=== PATIENT | female | born 1965 | race Caucasian/White ===

== ENCOUNTER 2016-10-10 11:12 | Emergency (ER) | payer BC, MEDICAID ==
[2016-10-10 13:02] VITALS: BP 148/68
--- NOTE | 2016-10-10 13:17 | UC ---
Neck Pain HPI - HPI Summary HPI Summary: c/o feeling like muscle are tight in R side of neck since Wednesday. Denies any injury. Here with her Patrick. pain just started suddenly that evening. hard to turn her neck from side to side. denies any w/n//t into arm. no central pain. pain radiates to right upper trap area and right lateral neck. Max pain 8/ 10 and decreased to about 6/10 with ibuprofen 800mgs. - History of Current Complaint Chief Complaint: UCBackPain Stated Complaint: NECK COMPLAINT Time Seen by Provider: 10/10/16 13:13 Hx Last Menstrual Period: 09/02/16 - Allergies/Home Medications Allergies/Adverse Reactions: Allergies Allergy/AdvReac Type Severity Reaction Status Date / Time No Known Allergies Allergy Verified 10/10/16 12:56 PMH/Surg Hx/FS Hx/Imm Hx Previously Healthy: Yes Endocrine History Of: Denies: Diabetes Cardiovascular History Of: Denies: Hypertension, Pacemaker/ICD Respiratory History Of: Reports: Bronchitis - 2013 Denies: Asthma GI/ History Of: Reports: Kidney Stones - HX OF KIDNEY STONES IN LEFT KIDNEY - Surgical History Surgical History: Yes Surgery Procedure, Year, and Place: 1997 AND 2001 X 2, [facility]. 2001 LAPAROSCOPIC CHOLECYSTECTOMY, [facility] [place]. 2001 TUBAL LIGATION, [facility]. 2013 CYSTOSCOPY , LEFT RETROGRADE, LEFT URETERAL STENT INSERTION. MULTIPLE ESWL, [facility]. 02/2015 REPAIR OF POSTERIOR TIBIAL TENDON AND CALCANEAL OSTEOTOMY LEFT FOOT, [facility] [place] - Family History Known Family History: Positive: Hypertension - Social History Alcohol Use: None Substance Use Type: None Smoking Status (MU): Heavy Every Day Tobacco Smoker Type: Cigarettes Amount Used/How Often: 1/2 PPD Length of Time of Smoking/Using Tobacco: 25 YEARS Have You Smoked in the Last Year: Yes Review Of Systems Constitutional: Positive: Negative Skin: Positive: Negative Eyes: Positive: Negative ENT: Positive: Negative Respiratory: Positive: Negative Cardiovascular: Positive: Negative Gastrointestinal: Positive: Negative Genitourinary: Positive: Negative Musculoskeletal: Positive: Myalgia Neurological: Positive: Negative Psychological: Positive: Negative All Other Systems Reviewed And Are Negative: Yes Physical Exam Triage Information Reviewed: Yes Appearance: Well-Appearing, Pain Distress - mild-moderate Vital Signs: Initial Vital Signs Temp 99.3 F 10/10/16 12:57 Pulse 82 10/10/16 12:57 Resp 20 10/10/16 12:57 BP 148/68 10/10/16 12:57 Pulse Ox 98 10/10/16 12:57 Vital Signs Reviewed: Yes Eye Exam: Normal ENT Exam: Normal Neck: Positive: Supple, Tenderness @ - right paraspinal, upper trap and right lateral neck muscle spasm and tenderness that reproduces the pain. ROM is limited lateral right and left due to pain. Good flexion and extension. no midline tenderness. Negative: Nuchal Rigidity Respiratory: Positive: Lungs clear, Normal breath sounds, No respiratory distress Cardiovascular Exam: Normal Cardiovascular: Positive: RRR, No Murmur, Pulses Normal, Brisk Capillary Refill Abdominal Exam: Normal Abdomen Description: Positive: Nontender, Soft Musculoskeletal: Positive: Other: - see neck above Neurological Exam: Normal Neurological: Positive: Muscle Tone Normal, Other: - strength 5/5 B/L UE proximal and distal and equal b/l. + 2 B/T/BR b/l. Psychological Exam: Normal Skin Exam: Normal Neck Pain Course/Dx - Differential Dx/Diagnosis Differential Dx/HQI/PQRI: Sprain, Strain, Torticollis Provider Diagnoses: torticollis Discharge - Discharge Plan Condition: Stable Disposition: HOME Prescriptions: Cyclobenzaprine TAB* [Flexeril TAB*] 10 mg PO BID PRN #10 tab PRN Reason: Pain Meloxicam [Mobic] 15 mg PO Q24HR #14 tab Patient Education Materials: Spasmodic Torticollis (ED) Additional Instructions: Follow up with your PCP in 2-3 days. consideration should be given to xrays at that time if not improved. Do not take NSAIDs with the meloxicam. You denied any h/o ulcers or intestinal/bleeding issues.
== END 2016-10-10 13:39 | disposition home or self-care (01) ==
LOC: UCCORT 11:12
DX: M43.6 Torticollis (principal); F17.210 Nicotine dependence, cigarettes, uncomplicated
CPT/HCPCS: 99212; G0463

== ENCOUNTER 2017-09-04 09:05 | Emergency (ER) | payer BC ==
[2017-09-04 09:27] VITALS: BP 138/75
--- NOTE | 2017-09-04 10:07 | ED ---
Throat Pain/Nasal Congestion - HPI Summary HPI Summary: 52 yr old female with the complaint of runny nose, post nasal drip, sinus congestion, cough, bilateral ear pain. She is a smoker. She denies other complaints. She denies fever, chills. - History of Current Complaint Chief Complaint: UCRespiratory Time Seen by Provider: 09/04/17 09:47 - Allergies/Home Medications Allergies/Adverse Reactions: Allergies Allergy/AdvReac Type Severity Reaction Status Date / Time No Known Allergies Allergy Verified 09/04/17 09:22 Home Medications: Home Medications Solifenacin(NF) [Vesicare(NF)] 5 mg PO DAILY 09/04/17 [History Confirmed ] PMH/Surg Hx/FS Hx/Imm Hx Endocrine/Hematology History: Denies: Hx Diabetes Cardiovascular History: Reports: Hx Rheumatic Fever - A CHILD Denies: Hx Hypertension, Hx Pacemaker/ICD Respiratory History: Denies: Hx Asthma History: Reports: Hx Kidney Stones - HX OF KIDNEY STONES IN LEFT KIDNEY Musculoskeletal History: Reports: Hx Arthritis Sensory History: Reports: Hx Contacts or Glasses - READING GLASSES Denies: Hx Hearing Aid Opthamlomology History: Reports: Hx Contacts or Glasses - READING GLASSES Psychiatric History: Denies: Hx Panic Disorder - Surgical History Surgery Procedure, Year, and Place: 1997 AND 2001 X 2, [facility]. 2001 LAPAROSCOPIC CHOLECYSTECTOMY, [facility]. 2001 TUBAL LIGATION, [facility]. 2013 CYSTOSCOPY , LEFT RETROGRADE, LEFT URETERAL STENT INSERTION. MULTIPLE ESWL, [facility]. 02/2015 REPAIR OF POSTERIOR TIBIAL TENDON AND CALCANEAL OSTEOTOMY LEFT FOOT, [facility] Hx Anesthesia Reactions: No Infectious Disease History: No Infectious Disease History: Denies: Traveled Outside the [place] in Last 30 Days - Family History Known Family History: Positive: Hypertension - Social History Occupation: Employed Full-time Alcohol Use: None Substance Use Type: Reports: None Smoking Status (MU): Heavy Every Day Tobacco Smoker Type: Cigarettes Amount Used/How Often: 1/2 PPD Length of Time of Smoking/Using Tobacco: Since Age 17 Have You Smoked in the Last Year: Yes Review of Systems Constitutional: Negative Positive: Sore Throat, Ear Ache, Nasal Discharge All Other Systems Reviewed And Are Negative: Yes Physical Exam Triage Information Reviewed: Yes Vital Signs On Initial Exam: Initial Vitals Temp Pulse Resp BP Pulse Ox 98 F 78 18 138/75 97 09/04/17 09:20 09/04/17 09:20 09/04/17 09:20 09/04/17 09:20 09/04/17 09:20 Vital Signs Reviewed: Yes Appearance: Positive: Well-Appearing, No Pain Distress Skin: Positive: Warm, Skin Color Reflects Adequate Perfusion Head/Face: Positive: Normal Head/Face Inspection Eyes: Positive: EOMI ENT: Positive: Pharyngeal erythema, TM red - left, Sinus tenderness - bilateral Neck: Positive: Nontender Respiratory/Lung Sounds: Positive: Clear to Auscultation, Breath Sounds Present Cardiovascular: Positive: RRR. Negative: Murmur Abdomen Description: Positive: Nontender Musculoskeletal: Positive: Strength/ROM Intact Neurological: Positive: Sensory/Motor Intact, Alert, Oriented to Person Place, Time, CN Intact II-III, Normal Gait Psychiatric: Positive: Normal - Veda Coma Scale Best Eye Response: 4 - Spontaneous Best Motor Response: 6 - Obeys Commands Best Verbal Response: 5 - Oriented Diagnostics - Vital Signs Vital Signs Temp Pulse Resp BP Pulse Ox 09/04/17 09:20 98 F 78 18 138/75 97 - Laboratory Lab Statement: Any lab studies that have been ordered have been reviewed, and results considered in the medical decision making process. EENT Course/Dx - Course Course Of Treatment: 52 yr old with sinusitis. Plan Dc home on Augmentin - Diagnoses Provider Diagnoses: Sinusitis Discharge - Discharge Plan Condition: Good Disposition: HOME Prescriptions: Amoxicillin/Clavulanate TAB* [Augmentin TAB 875*] 875 mg PO BID #20 tab Referrals: Carlos Mike MD [Primary Care Provider] -
== END 2017-09-04 10:24 | disposition home or self-care (01) ==
LOC: UCCORT 09:05
DX: J32.9 Chronic sinusitis, unspecified (principal); F17.210 Nicotine dependence, cigarettes, uncomplicated; Z87.442 Personal history of urinary calculi; M19.90 Unspecified osteoarthritis, unspecified site
CPT/HCPCS: 99212; G0463

== ENCOUNTER 2018-12-10 14:11 | Emergency (ER) | payer OTHER ==
[2018-12-10 16:11] VITALS: BP 152/102
--- NOTE | 2018-12-10 16:23 | UC ---
Throat Pain/Nasal Jaren HPI - HPI Summary HPI Summary: Pt c/o nasal congestion , cough, sinus pressure and pain X 10 days. Pt is takin gOTC mucinex wit hlittle improvement of symptoms. - History of Current Complaint Chief Complaint: UCRespiratory Stated Complaint: SINUSES/COUGH Time Seen by Provider: 12/10/18 16:18 Hx Obtained From: Patient Hx Last Menstrual Period: 07/22/17 ?: No Onset/Duration: Gradual Onset, Lasting Days - 10, Worse Since Severity: Severe Pain Intensity: 8 Cough: Productive Associated Signs & Symptoms: Positive: Sinus Discomfort, Nasal Discharge Related History: Smoking - Epiglottits Risk Factors Epiglottis Risk Factors: Negative - Allergies/Home Medications Allergies/Adverse Reactions: Allergies Allergy/AdvReac Type Severity Reaction Status Date / Time No Known Allergies Allergy Verified 12/10/18 16:07 PMH/Surg Hx/FS Hx/Imm Hx Previously Healthy: Yes - Surgical History Surgical History: Yes Surgery Procedure, Year, and Place: 1997 AND 2001 X 2, [facility]. 2001 LAPAROSCOPIC CHOLECYSTECTOMY, [facility] [place]. 2001 TUBAL LIGATION, [facility]. 2013 CYSTOSCOPY , LEFT RETROGRADE, LEFT URETERAL STENT INSERTION. MULTIPLE ESWL, [facility]. 02/2015 REPAIR OF POSTERIOR TIBIAL TENDON AND CALCANEAL OSTEOTOMY LEFT FOOT, [facility] [place] - Family History Known Family History: Positive: Hypertension - Social History Occupation: Employed Full-time Lives: With Family Alcohol Use: None Substance Use Type: None Smoking Status (MU): Heavy Every Day Tobacco Smoker Type: Cigarettes Amount Used/How Often: 1/2 PPD Length of Time of Smoking/Using Tobacco: Since Age 17 Have You Smoked in the Last Year: Yes - Immunization History Most Recent Influenza Vaccination: June 2017 Review of Systems All Other Systems Reviewed And Are Negative: Yes Constitutional: Positive: Fatigue Skin: Positive: Negative Eyes: Positive: Negative ENT: Positive: Sinus Congestion, Sinus Pain/Tenderness Respiratory: Positive: Cough Cardiovascular: Positive: Negative Gastrointestinal: Positive: Negative Genitourinary: Positive: Negative Motor: Positive: Negative Neurovascular: Positive: Negative Musculoskeletal: Positive: Negative Neurological: Positive: Headache Psychological: Positive: Negative Is Patient Immunocompromised?: No Physical Exam Triage Information Reviewed: Yes Appearance: Ill-Appearing, Obese Vital Signs: Initial Vital Signs Temp 98.6 F 12/10/18 16:08 Pulse 92 12/10/18 16:08 Resp 19 12/10/18 16:08 BP 152/102 12/10/18 16:08 Pulse Ox 96 12/10/18 16:08 Vital Signs Reviewed: Yes Eye Exam: Normal ENT: Positive: Nasal congestion, Sinus tenderness Dental Exam: Normal Neck exam: Normal Respiratory: Positive: Normal breath sounds Cardiovascular Exam: Normal Musculoskeletal Exam: Normal Neurological Exam: Normal Psychological Exam: Normal Skin Exam: Normal Throat Pain/Nasal Course/Dx - Differential Dx/Diagnosis Differential Diagnosis/HQI/PQRI: Influenza, Sinusitis, URI Provider Diagnosis: Sinusitis Discharge - Sign-Out/Discharge Documenting (check all that apply): Patient Departure All imaging exams completed and their final reports reviewed: No Studies - Discharge Plan Condition: Stable Disposition: HOME Prescriptions: Amoxicillin PO (*) [Amoxicillin 875 MG (*)] 875 mg PO Q12H #20 tab Patient Education Materials: Sinusitis (ED) Referrals: Carlos Mike MD [Primary Care Provider] - If Needed - Billing Disposition and Condition Condition: STABLE Disposition: Home - Attestation Statements Provider Attestation: I was available for consult. This patient was seen by the ABDIAZIZ. The patient was not presented to, seen by, or examined by me. -Reshma
== END 2018-12-10 16:28 | disposition home or self-care (01) ==
LOC: UCCORT 14:11
DX: J32.9 Chronic sinusitis, unspecified (principal); E66.9 Obesity, unspecified; F17.210 Nicotine dependence, cigarettes, uncomplicated; R09.81 Nasal congestion
CPT/HCPCS: 99212; G0463